=== PATIENT | male | born 1950 | race Caucasian/White ===

== ENCOUNTER → 2022-08-03 | Outpatient (CLI) | payer MEDICARE, OTHER ==
--- NOTE | 2022-08-03 16:50 | Diagnostic Imaging Report ---
EXAMINATION: Bilateral knee four view. HISTORY: Knee pain COMPARISON: None available FINDINGS: There is a left total knee arthroplasty. No fracture is seen. There is overlying soft tissue swelling. No dislocation. There is right total knee arthroplasty. There is overlying soft tissue swelling. No acute fracture. No dislocation. IMPRESSION: 1. Bilateral total knee arthroplasties with components in expected position and no fracture. Dictated by: Dictated on workstation # [id number]
== END ==
LOC: ORTHO 09:17
PROVIDERS: ATTEND Orthopaedic Surgery
DX: M25.561 Pain in right knee (principal); M25.562 Pain in left knee; Z96.653 Presence of artificial knee joint, bilateral
CPT/HCPCS: 73564; G0463; 99213

== ENCOUNTER → 2023-05-09 | Outpatient (CLI) | payer MEDICARE, OTHER | LOC: ORTHO 13:44 | PROVIDERS: ATTEND Orthopaedic Surgery | DX: Z96.653 Presence of artificial knee joint, bilateral (principal) | CPT/HCPCS: 99213 ==